=== PATIENT | female | born 1985 | race Asian ===

== ENCOUNTER 2018-01-15 08:28 | Inpatient (IN) | payer SELFPAY ==
[~2018-01-15] VITALS: Ht 167.6 cm; Wt 72.6 kg
[2018-01-15] MEDS ORDERED: AMPICILLIN 2,000 MG VIAL ONE (08:46)
--- NOTE | 2018-01-15 09:04 | NUR ---
PATIENT HAS BEEN SCREENED AND CATEGORIZED LOW NUTRITION RISK. PATIENT WILL BE SEEN WITHIN 7 DAYS OF ADMISSION. 01/21/[address]
[2018-01-15] MEDS ORDERED: LACTATED RINGERS 1,000 ML IV SCH (09:08)
[2018-01-15] MEDS ORDERED: OXYTOCIN 20 UNITS in LACTATED RINGERS 1,000 ML IV SCH ×2 (09:08→09:10)
[2018-01-15] MEDS ORDERED: PREN-546 PO (09:08)
[2018-01-15] MEDS ORDERED: PROMETHAZINE 25 MG/ML VIAL IVP PRN (09:10)
[2018-01-15] MEDS ORDERED: NALBUPHINE 10 MG/ML AMP IVP PRN (09:10)
[2018-01-15] MEDS ORDERED: OXYTOCIN 10 UNITS/ML VIAL IM PRN (09:10)
[2018-01-15] MEDS ORDERED: AMPICILLIN 2,000 MG in NACL 0.9% 100 ML IV ONE (09:47)
[2018-01-15 09:59] LABS: BASOPHILS # (AUTO) 0.1 K/uL (0.00-0.22); BASOPHILS % (AUTO) 0.6 % (0.0-2.0); EOSINOPHILS % (AUTO) 0.1 % (0.0-4.0); HEMATOCRIT 37.7 % (36-48); HEMOGLOBIN 12.3 g/dL (12.0-16.0); LYMPHOCYTES # (AUTO) 1.6 K/uL (2.5-16.5); LYMPHOCYTES % (AUTO) 16.3 % (20.5-51.1); MEAN CORPUSCULAR HEMOGLOBIN 31 pg (27-31); MEAN CORPUSCULAR HGB CONC 33 g/dL (33-37); MEAN CORPUSCULAR VOLUME 96.1 fL (80-94); MONOCYTES # (AUTO) 0.6 K/uL (0.8-1.0); MONOCYTES % (AUTO) 5.8 % (1.7-9.3); NEUTROPHILS # (AUTO) 7.4 K/uL (1.8-7.7); NEUTROPHILS % (AUTO) 77.2 % (42.2-75.2); PLATELET COUNT (AUTO) 127 K/uL (140-450); RED BLOOD CELL COUNT(AUTO) 3.92 MIL/uL (4.20-5.40); RED CELL DISTRIBUTION WIDTH 13.6 % (11.6-13.7); WHITE BLOOD COUNT (AUTO) 9.6 K/uL (4.8-10.8)
[2018-01-15 10:05] LABS: BILIRUBIN,URINE NEGATIVE (NEGATIVE); BLOOD, URINE 3+ (NEGATIVE); COLOR,URINE YELLOW (YELLOW); LEUKOCYTE ESTERASE ,URINE NEGATIVE (NEGATIVE); NITRITE, URINE NEGATIVE (NEGATIVE); UGLUCOSE NEGATIVE (NEGATIVE)
[2018-01-15 10:06] LABS: APPEARANCE,URINE SLIGHTLY HAZY (CLEAR)
[2018-01-15 10:13] LABS: RBC,URINE 3-10 (FEW) /HPF (0-5); WBC,URINE 0-5 (RARE) /HPF (0-5)
[2018-01-15] MEDS ORDERED: ROPIVACAINE 0.2%/NS PREMIX 250 ML EPI ONE (11:50)
[2018-01-15] MEDS ORDERED: AMPICILLIN 1,000 MG VIAL IVP SCH (12:00)
[2018-01-15] MEDS ORDERED: ROPIVACAINE 0.2%/NS PREMIX 250 ML EPI SCH (12:05)
[2018-01-15] MEDS ORDERED: AMPICILLIN 1,000 MG VIAL ONE (13:02)
[2018-01-15] MEDS ORDERED: OXYTOCIN 10 UNITS/ML VIAL ONE (14:26)
[2018-01-15] MEDS ORDERED: ERYTHROMYCIN 0.5% OPTH OINT 1 GM TUBE ONE (15:02)
[2018-01-15] MEDS ORDERED: NALOXONE 0.4 MG/ML VIAL ONE (15:03)
[2018-01-15] MEDS ORDERED: PHYTONADIONE 1 MG/0.5 ML SYR ONE (15:03)
[2018-01-15] MEDS ORDERED: HEPATITIS B VACCINE PEDIATRIC 10 MCG/0.5 ML VIAL IMVAC ONE (15:03)
--- NOTE | 2018-01-15 15:30 | NUR ---
CALLED TO [facility] R00M 2 BABY IN [place] ON NEOPUFF DR QUILES BEDSIDE ABG ORDERED HEEL STICKS DONE BY RN INTO CAPILLARY TUBES 3 ATTEMPTS RAN IN ABG MACHINE UNABLE TO GET RESULTS FROM SAMPLES DR CARREON DONELL ABG FROM RT B [facility] RETURNED [id number] QUILES AND DR CARREON
[2018-01-15] MEDS ORDERED: AMPICILLIN 1,000 MG in NACL 0.9% 50 ML IV SCH (16:00)
--- NOTE | 2018-01-15 16:05 | NUR ---
UNABLE TO PUT INFORMATION IN RAPID COM NO PT INFO AVAILABLE WILL PUT IN WHEN AVAILABLE
[2018-01-15] MEDS ORDERED: MEASLES, MUMPS, AND RUBELLA 1 VIAL SQVAC PRN (18:00)
[2018-01-15] MEDS ORDERED: TEMAZEPAM 15 MG CAP PO PRN (18:00)
[2018-01-15] MEDS ORDERED: oxyCODONE/APAP 5/325 MG 1 TAB TAB PO PRN (18:00)
[2018-01-15] MEDS ORDERED: METHYLERGONOVINE 0.2 MG/ML AMP IM PRN (18:00)
[2018-01-15] MEDS ORDERED: IBUPROFEN 800 MG TAB PO PRN (18:00)
[2018-01-15] MEDS ORDERED: DOCUSATE SOD/SENNA 50/8.6 MG 1 TAB PO SCH (21:00)
[2018-01-16] MEDS: HYDROcodone/APAP 5/325 MG 1 TAB TAB PO PRN ×3 (02:54→11:50)
[2018-01-16 06:08] LABS: HEMATOCRIT 35.3 % (36-48); HEMOGLOBIN 11.6 g/dL (12.0-16.0)
== END 2018-01-16 18:05 | disposition home or self-care (01) | DRG 775 ==
LOC: MLD 08:28 → MFCC 20:46
PROVIDERS: ADMIT Obstetrics & Gynecology; ATTEND Obstetrics & Gynecology
PROC: 10E0XZZ Delivery of Products of Conception, External Approach (ICD-10-PCS; principal; 2018-01-15)
PROC: 00HU33Z Insertion of Infusion Device into Spinal Canal, Percutaneous Approach (ICD-10-PCS; 2018-01-15)
PROC: 3E0R3BZ Introduction of Anesthetic Agent into Spinal Canal, Percutaneous Approach (ICD-10-PCS; 2018-01-15)
PROC: 3E0234Z Introduction of Serum, Toxoid and Vaccine into Muscle, Percutaneous Approach (ICD-10-PCS; 2018-01-16)
DX: O99.824 Streptococcus B carrier state complicating childbirth (principal); O69.1XX0 Labor and delivery complicated by cord around neck, with compression, not applicable or unspecified; Z3A.37 37 weeks gestation of pregnancy; Z37.0 Single live birth; Z23 Encounter for immunization
CPT/HCPCS: 36415; 59409; 81001; 85018; 85025; 86592; 86886; 86900; 86901; 90715; 90744; J0290; J2310; J2590; J2795; J3430; J7120